=== PATIENT | female | born 1980 | race Caucasian/White ===

== ENCOUNTER 2017-07-20 09:33 | Observation (INO) ==
--- NOTE | 2017-07-20 10:12 | OB/GYN Progress Note ---
Date of Encounter: 07/20/17 Time of Encounter: 10:09 - Assessment and Plan (1) Decreased movement Current Visit: Yes Status: Acute Placement to observation for extended monitoring FHT - baseline 140 with variability and accels - category I No contractions noted on monitor Reports feeling good movement now Qualifiers: Fetus number: single or unspecified fetus Trimester: third trimester Qualified Code(s): O36.8130 - Decreased movements, third trimester, not applicable or unspecified (2) 33 weeks gestation of Current Visit: Yes Status: Acute (3) History of delivery, currently in third trimester Current Visit: Yes Status: Acute Pt refused progesterone in this . (4) contractions Current Visit: No Status: Acute Pt reports contractions have resolved this am. BHANUE /2. Plan for celestone today and tomorrow. Pt ok for discharge home after celestone today with strict labor precautions. Subjective - Subjective Principal diagnosis: Decreased Movement Interval history: Ms. Pang is a 36 year old female at 33w5d presenting to L&D from the office for decreased movement. She reports not feeling movement overnight. She reports having some contractions for the past week, at times as frequent as every 10 minutes. FHT in the office were reassuring. She admits to some normal mucous-like discharge. Reports some perineal pressure and pain. Denies LOF or vaginal bleeding. Denies fevers, chills, headaches, vision changes , dyspnea, abdominal pain, or edema. She has a history of pre-term delivery at 34 weeks. Antepartum ROS: new complaints, contractions, no loss of fluid, no vaginal bleeding, no movement normal Objective - Exam FHR: auscultation normal, category 1 FHR comments: FHT - baseline 140 with variability and accels - category I No contractions noted on monitor Auscultation: bilateral: normal Abdomen: Present: normal appearance, soft, gravid Uterus: Present: normal, firm
[2017-07-20 10:46] VITALS: BP 128/69
[2017-07-20 10:58] LABS: Amphetamine Screen,Urine Negative ng/mL (Cutoff=1000); Barbiturate Screen,Urine Negative ng/mL (Cutoff=200); Benzodiazepines Screen,Urine Negative ng/mL (Cutoff=200); Cannabinoid Screen,Urine Negative ng/mL (Cutoff = 50); Cocaine Screen,Urine Negative ng/mL (Cutoff= 300); Opiate Screen,Urine Negative ng/mL (Cutoff=300); Phencyclidine Screen,Urine Negative ng/mL (Cutoff=25)
[2017-07-20] MEDS ORDERED: Betamethasone Acet/SodPhos 6 MG/ML MDV IM SCH (11:45)
[2017-07-21 07:29] LABS: Bilirubin,Urine Negative (Negative); Blood,Urine Negative (Negative); Clarity,Urine Cloudy (Clear); Color,Urine Yellow (Yellow); Glucose,Urine (UA) Normal (Normal); Ketones,Urine Negative (Negative); Leukocyte Esterase,Urine Large (Negative); Nitrite,Urine Negative (Negative); Protein,Urine Negative (Neg-Trace); Urobilinogen,Urine Normal (Normal)
[2017-07-21 07:30] LABS: Bacteria,Urine Few per hpf (None-Few); Hyaline Casts,Urine None Seen per lpf (None-Few); Squamous Epithelial Cell,Urine Many per lpf (None-Few); WBC,Urine 15-30 per hpf (0-3)
== END 2017-07-20 12:01 | disposition home or self-care (01) ==
LOC: 1NENULAB
PROVIDERS: ADMIT Obstetrics & Gynecology; ATTEND Obstetrics & Gynecology

== ENCOUNTER 2017-07-23 14:58 | Observation (INO) ==
[2017-07-23] MEDS ORDERED: Acetaminophen 325 MG TABLET PO ONE (17:01)
[2017-07-23] MEDS ORDERED: Metoclopramide 10 MG/2 ML VIAL IVP ONE (17:01)
[2017-07-23] MEDS ORDERED: Ringers Solution, Lactated 1,000 ML IVC ONE (17:03)
[2017-07-23] MEDS ORDERED: Ringers Solution, Lactated 1,000 ML IVC SCH (17:15)
[2017-07-23 17:18] LABS: Basophils # 0.1 K/mcL (0.0-0.2); Basophils % 0.6 %; Eosinophils # 0.1 K/mcL (0.0-0.6); Eosinophils % 0.3 %; Hematocrit 37.8 % (35.3-44.9); Hemoglobin 12.6 g/dL (11.5-15.4); Immature Granulocytes % 3.3 % (0-4); Lymphocytes # 2.5 K/mcL (0.6-4.6); Lymphocytes % 15.1 %; Mean Corpuscular HGB Conc 33.3 g/dL (31.6-35.5); Mean Corpuscular Hemoglobin 28.3 pg (28.0-33.3); Mean Corpuscular Volume 84.8 fL (83.0-100.0); Mean Platelet Volume 10.4 fL (9.4-12.4); Monocytes # 1.4 K/mcL (0.0-1.3); Monocytes % 8.4 %; Neutrophils # 12.2 K/mcL (1.6-8.9); Platelet Count 261 K/mcL (140-400); Red Blood Count 4.46 M/mcL (3.82-4.97); Red Cell Distribution Width 13.6 % (11.5-14.5); Segmented Neutrophils % 72.3 %
[2017-07-23 17:20] LABS: Amphetamine Screen,Urine Negative ng/mL (Cutoff=1000); Barbiturate Screen,Urine Negative ng/mL (Cutoff=200); Benzodiazepines Screen,Urine Negative ng/mL (Cutoff=200); Cannabinoid Screen,Urine Negative ng/mL (Cutoff = 50); Cocaine Screen,Urine Negative ng/mL (Cutoff= 300); Opiate Screen,Urine Negative ng/mL (Cutoff=300); Phencyclidine Screen,Urine Negative ng/mL (Cutoff=25)
[2017-07-23 17:31] LABS: Alanine Aminotransferase 18 Units/L (7-52); Aspartate Amino Transferase 23 Units/L (13-39); BUN/Creatinine Ratio 16 (6-26); Blood Urea Nitrogen 9 mg/dL (6-20); Lactate Dehydrogenase 135 Units/L (140-271); Uric Acid 3.7 mg/dL (2.3-7.6); eGFR For African Americans > 60 (> 60); eGFR For Non-African Americans > 60 (> 60)
[2017-07-23 17:33] LABS: Protein/Creatinine Ratio,Urine 0.18 mg/mg (0.00-0.20)
--- NOTE | 2017-07-23 18:30 | OB/GYN Progress Note ---
Date of Encounter: 07/23/17 Time of Encounter: 18:28 - Assessment and Plan (1) 34 weeks gestation of Current Visit: Yes Status: Acute (2) Uterine contractions Current Visit: Yes Status: Acute Inital cervical exam by RN 1cm, CNM exam was tight 3, fluid bolus given. Cervical exam remains unchanged on follow up exam. Pt states feels contractions have decreased.Discharged home with labor and when to return to triage precautions. (3) NST (non-stress test) reactive Current Visit: Yes Status: Acute baseline 135 (4) Encounter for suspected PROM, with rupture of membranes not found Current Visit: Yes Status: Acute Nitrazine and fern negative (5) History of delivery, currently in third trimester Current Visit: No Status: Acute (6) Headache in , antepartum Current Visit: Yes Status: Acute Pt given fluid bolus, po tylenol and iv reglan. PIH labs drawn due bp of 140/ 85. All PIH labs negative. On discharged patient states headache has resolved. Subjective - Subjective Interval history: 34+1 weeks gestation presents to labor and delivery with complaints of contractions and leaking of fluid since yesterday, pt states she started having contractions yesterday and has noticed some leaking of fluid throughout the day requiring her to use a gian pad, contractions every 10-15 minutes. Pt also states she has had a headache since yesterday and notices and increase in pain with each contraction. Pt rates headache 8/10. Reports good movement denies vaginal bleeding. History of delivery at 36 and 35 weeks with last two pregnancies. Antepartum ROS: loss of fluid, movement normal, contractions, no vaginal bleeding Objective - Vital Signs Vital Signs: Intake and Output 07/23/17 07/23/17 07/23/17 07:59 15:59 23:59 Other: Weight 96.3 kg Patient Weight 07/23/17 23:59 Weight 96.3 kg - Exam FHR: auscultation normal FHR comments: Baseline 135 Abdomen: Present: normal appearance, soft, gravid Cervical dilation: tight 3cm/50/-2 - Labs Labs: Abnormal lab results WBC 16.8 K/mcL (4.3-11.1) H 07/23/17 17:05 Neutrophils # 12.2 K/mcL (1.6-8.9) H 07/23/17 17:05 Monocytes # 1.4 K/mcL (0.0-1.3) H 07/23/17 17:05 Creatinine 0.56 mg/dL (0.60-1.20) L 07/23/17 17:05 Lactate Dehydrogenase 135 Units/L (140-271) L 07/23/17 17:05
== END 2017-07-23 18:45 | disposition home or self-care (01) ==
LOC: 1NENULAB
PROVIDERS: ADMIT Advanced Practice Midwife; ATTEND Advanced Practice Midwife

== ENCOUNTER 2017-07-26 18:11 | Observation (INO) ==
--- NOTE | 2017-07-26 19:26 | OB/GYN Progress Note ---
Date of Encounter: 07/26/17 Time of Encounter: 19:00 - Assessment and Plan (1) Uterine contractions Current Visit: No Status: Acute Plan: - nitrazine test negative vaginally, positive on pad - negative ferning test - CTG shows no contractions - serial cervical exam without change - Pt safe for discharge home, with labor precautions, when to return to triage or call provider. Pt verbalizes understanding. (2) 34 weeks gestation of Current Visit: No Status: Acute (3) NST (non-stress test) reactive Current Visit: No Status: Acute FHR baseline= 130, (4) Encounter for suspected PROM, with rupture of membranes not found Current Visit: No Status: Acute Subjective - Subjective Principal diagnosis: labor eavl Interval history: Rachael is a 36 y/o female 34+4 weeks gestation presents to labor and delivery with complaints of contractions and leakage of fluid in the labor room. Patient states that contractions began at 4:00pm today and were every 3-4 minutes. While in the delivery room, patient stated that she thought she just broke her water and noticed a wet spot on the pad. Reports good movement. Admits to no diffuse vaginal bleeding but has been spotting since she had a vaginal exam. Denies dysuria, fevers, or chills. History of delivery at 36 and 35 weeks with last two pregnancies. Antepartum ROS: loss of fluid, movement normal, contractions, no vaginal bleeding Objective - Vital Signs Vital Signs: Intake and Output 07/26/17 07/26/17 07/26/17 07:59 15:59 23:59 Other: Weight 97.023 kg Patient Weight 07/26/17 23:59 Weight 97.023 kg - Exam FHR: category 1 FHR comments: FHR baseline = 130 Auscultation: bilateral: normal Abdomen: Present: normal appearance, soft Uterus: Present: normal Cervical dilation: 3-4cm Cervix effacement: 70% station: -2 Comments: SSE with thick clear mucus, negative pooling, negative nitrazine, negative fern
[2017-07-26 19:34] LABS: Bilirubin,Urine Negative (Negative); Blood,Urine Negative (Negative); Clarity,Urine Clear (Clear); Color,Urine Yellow (Yellow); Glucose,Urine (UA) Normal (Normal); Ketones,Urine Negative (Negative); Leukocyte Esterase,Urine Trace (Negative); Nitrite,Urine Negative (Negative); PH,Urine 6.5 pH Units (5.0-8.0); Protein,Urine Negative (Neg-Trace); Specific Gravity,Urine 1.015 (1.010-1.025); Urobilinogen,Urine Normal (Normal)
[2017-07-26 19:37] LABS: Amphetamine Screen,Urine Negative ng/mL (Cutoff=1000); Bacteria,Urine None Seen per hpf (None-Few); Barbiturate Screen,Urine Negative ng/mL (Cutoff=200); Benzodiazepines Screen,Urine Negative ng/mL (Cutoff=200); Cannabinoid Screen,Urine Negative ng/mL (Cutoff = 50); Cocaine Screen,Urine Negative ng/mL (Cutoff= 300); Hyaline Casts,Urine None Seen per lpf (None-Few); Opiate Screen,Urine Negative ng/mL (Cutoff=300); Phencyclidine Screen,Urine Negative ng/mL (Cutoff=25); Squamous Epithelial Cell,Urine Many per lpf (None-Few)
== END 2017-07-26 20:28 | disposition home or self-care (01) ==
LOC: 1NENULAB
PROVIDERS: ADMIT Registered Nurse; ATTEND Registered Nurse

== ENCOUNTER 2017-08-06 14:19 | Observation (INO) ==
[2017-08-06 14:56] LABS: Amphetamine Screen,Urine Negative ng/mL (Cutoff=1000); Barbiturate Screen,Urine Negative ng/mL (Cutoff=200); Benzodiazepines Screen,Urine Negative ng/mL (Cutoff=200); Cannabinoid Screen,Urine Negative ng/mL (Cutoff = 50); Cocaine Screen,Urine Negative ng/mL (Cutoff= 300); Opiate Screen,Urine Negative ng/mL (Cutoff=300); Phencyclidine Screen,Urine Negative ng/mL (Cutoff=25)
--- NOTE | 2017-08-06 15:38 | OB/GYN Progress Note ---
Date of Encounter: 08/06/17 Time of Encounter: 15:32 - Assessment and Plan (1) 36 weeks gestation of Current Visit: Yes Status: Acute Discharge home with labor precautions Follow up in office with routine care and PRN. (2) Vaginal discharge during in third trimester Current Visit: Yes Status: Acute Vaginosis panel pending. Will call patient if positive results (3) NST (non-stress test) reactive Current Visit: No Status: Acute reactive, category I tracing Subjective - Subjective Principal diagnosis: Leaking fluid Interval history: Ms Pang is a at 36 weeks and 1 day gestation that presents to labor and delivery triage with c/o gushes of vaginal fluid. She states positive movement. She denies headache visual disturbances, epigastric pain, vomiting, fever, diarrhea, and cramping/vaginal bleeding. She has a history of one delivery at 35 weeks, but had normal cervical ultrasound lengths this and declined progesterone after speaking with SOPH[facility] and Dr Moore. She states "I just want this to be over". Her perineum was dry upon nursing exam and nitrazine negative. She then states that she had a large gush of fluid immediately after the nurse left the room. There is a large yellow colored wet stain on the absorbent pad she is sitting on. Antepartum ROS: new complaints, loss of fluid, movement normal, no vaginal bleeding, no contractions Objective - Vital Signs Vital Signs: Intake and Output 08/05/17 08/06/17 08/06/17 23:59 07:59 15:59 Other: Weight 96.524 kg Patient Weight 08/06/17 23:59 Weight 96.524 kg - Exam FHR: auscultation normal, category 1 (Baseline 155) Abdomen: Present: normal appearance, soft, gravid. Absent: distention, tenderness Uterus: Present: normal. Absent: firm, bogginess, tenderness Cervical dilation: 4 Cervix effacement: 80 station: -1 Comments: SSE - mild amount of white thin discharge, no pooling Nitrazine negative Ferning negative
[2017-08-06 16:39] LABS: Candida DNA Not Detected (Not Detect); Gardnerella DNA ***DETECTED*** (Not Detect); Trichomonas DNA Not Detected (Not Detect)
== END 2017-08-06 16:05 | disposition home or self-care (01) ==
LOC: 1NENULAB
PROVIDERS: ADMIT Advanced Practice Midwife; ATTEND Advanced Practice Midwife

== ENCOUNTER 2017-08-14 09:31 | Inpatient (IN) ==
[~2017-08-14 09:31] MED LIST: Oxytocin 20 units/ LR 1000 mL 20 UNIT/1,000 ML BAG IVC ONE; Ringers Solution, Lactated 1,000 ML ONE
[2017-08-14] MEDS ORDERED: Lidocaine 1% 20 ML MDV ONE (09:54)
--- NOTE | 2017-08-14 10:13 | OB/GYN History & Physical ---
Date of Encounter: 08/14/17 Time of Encounter: 10:09 Assessment and Plan (1) 37 weeks gestation of Current visit: Yes Status: Acute (2) Uterine contractions Current visit: No Status: Acute Admit to labor and delivery Anticipate GBS+ Dr. Chacko updated about admission. History of Present Illness Chief complaint: labor HPI: Ms. Pang is a 36 year old female 37+2 presents in labor. Contractions since last night, stronger this morning. Desires unblocked natural . Late entry to care. AMA, no other complications. Desires PPTL Labs:O+, Rubella immune, GBS +, all other serologies negative, Past Med Surg Social Fam HX - Past Medical History Medical history: other Psychiatric history: no psych history - Past Surgical History Surgical History: no surgical history - Social History Smoking Status: Never smoker Smokeless Tobacco Status: No Alcohol use: none Drug use: none - Family History Mother Adopted: No Family Member Ethnicity: Non- Living Status: Still Living Hx Family Cardiac Disorders: No Hx Family Respiratory Disorders: No Hx Family Cancer: No Hx Family GI Disorders: No Hx Family Endocrine Disorder: Yes (diabetes) Hx Family Neuromuscular Disorders: No Hx Family Neurologic Disorders: No Hx Family HEENT Disorders: No Hx Family Autoimmune Disorders: No Obstetrical History - Pregnancies : 4 Para: 3 Livin Medications and Allergies Vit No.124/Iron/FA [ Vitamin Tablet] 1 tab PO DAILY #30 tablet 09/23/15 [Rx] 3 Allergy/AdvReac Type Severity Reaction Status Date / Time meperidine [From Demerol] AdvReac Mild Vomiting Verified 08/14/17 09:32 Exam - Constitutional Constitutional: well developed, well nourished, no acute distress, average body habitus - Neck Neck exam: full ROM - Lungs Respiratory exam: CTAB - Cardiovascular Cardiovascular exam: RRR - Abdomen Abdomen: Present: bowel sounds normal - Extremities Extremities exam: normal capillary refill, normal inspection - Cervix Dilation: 9 - Uterus Uterus exam: Present: normal size Results All other labs normal.
--- NOTE | 2017-08-14 10:19 | OB/GYN Procedure Note ---
Delivery - Delivery Date: 08/14/17 Provider: Romi Pineda Intrapartum events: precipitous labor- <3hr Delivery induction: none Delivery monitor: external FHT, external uterine Anesthesia: local Estimated Blood Loss: 200 - (s) A Delivery Date: 08/14/17 Delivery Time: 09:48 Presentation: vertex Position: OP Route of delivery: Gender: Male Viability: Viable at 1 minute: 9 at 5 mins: 9 Shoulder Dystocia: not encountered Placenta: spontaneous Cord: 3 umbilical vessels - Repair Episiotomy: none Laceration Description: Perineal - 1st Degree - Complications Delivery complications: none Delivery comments: Admitted in spontaneous labor at 9cm. Progressed to complete, Maternal bearing down efforts to of liveborn male. Vertex delivered OP, shoulders and body easily followed. Vigorous placed on maternal abdomen APGARS 9/9. Placenta delivered spontaneously (radha), complete upon inspections. Fundus massaged until firm and pitocin started per policy. 1st degree perineal laceration repaired with 3-0 Vycril. Mother and left bonding skin to skin. EBL 200 - Disposition Mom disposition: stable in LDR disposition: stable in LDR
[2017-08-14] MEDS ORDERED: Naloxone 0.4 MG/ML INJ IVP PRN (10:28)
[2017-08-14] MEDS ORDERED: Acetaminophen 325 MG TABLET PO PRN (10:43)
[2017-08-14] MEDS ORDERED: Benzocaine/Menthol 56 GM AEROSOL SPRAY TP PRN (10:43)
[2017-08-14] MEDS ORDERED: Lanolin 7 G OINT...G. TP PRN (10:43)
[2017-08-14] MEDS ORDERED: Oxytocin 20 units/ LR 1000 mL 20 UNIT/1,000 ML BAG IVC SCH (10:43)
[2017-08-14] MEDS: Ibuprofen 600 MG TABLET PO PRN (10:58)
[2017-08-14 11:02] LABS: Basophils % 0.3 %; Eosinophils # 0.1 K/mcL (0.0-0.6); Eosinophils % 0.8 %; Hematocrit 42.3 % (35.3-44.9); Lymphocytes # 2.4 K/mcL (0.6-4.6); Lymphocytes % 15.6 %; Mean Corpuscular HGB Conc 33.1 g/dL (31.6-35.5); Mean Corpuscular Hemoglobin 27.8 pg (28.0-33.3); Mean Corpuscular Volume 83.9 fL (83.0-100.0); Mean Platelet Volume 10.7 fL (9.4-12.4); Monocytes # 0.9 K/mcL (0.0-1.3); Monocytes % 5.6 %; Neutrophils # 11.7 K/mcL (1.6-8.9); Platelet Count 254 K/mcL (140-400); Red Blood Count 5.04 M/mcL (3.82-4.97); Red Cell Distribution Width 14.2 % (11.5-14.5); Segmented Neutrophils % 76.7 %
[2017-08-14 14:07] LABS: Amphetamine Screen,Urine Negative ng/mL (Cutoff=1000); Barbiturate Screen,Urine Negative ng/mL (Cutoff=200); Benzodiazepines Screen,Urine Negative ng/mL (Cutoff=200); Cannabinoid Screen,Urine Negative ng/mL (Cutoff = 50); Cocaine Screen,Urine Negative ng/mL (Cutoff= 300); Opiate Screen,Urine Negative ng/mL (Cutoff=300); Phencyclidine Screen,Urine Negative ng/mL (Cutoff=25)
[2017-08-15] MEDS: Ibuprofen 600 MG TABLET PO PRN ×2 (00:01→08:55)
--- NOTE | 2017-08-15 07:58 | Discharge Summary ---
Date of Encounter: 08/15/17 Time of Encounter: 08:15 - Discharge Diagnosis (1) 37 weeks gestation of Priority: Primary Status: Acute (2) Spontaneous vaginal delivery Priority: Secondary Status: Acute - Discharge Medications Prescriptions: Acetaminophen [Tylenol] 650 mg PO Q6HR PRN #40 tablet PRN Reason: Mild Pain Ibuprofen [Motrin] 600 mg PO Q6HR PRN #40 tablet PRN Reason: Cramping Docusate [Colace] 100 mg PO BID #10 capsule Home Medications: Vit No.124/Iron/FA [ Vitamin Tablet] 1 tab PO DAILY #30 tablet 09/23/15 [Rx] Acetaminophen [Tylenol] 650 mg PO Q6HR PRN #40 tablet 08/15/17 [Rx] Benzocaine/Menthol [place] [Dermoplast [place]] 1 appl TP QID PRN aerosol 08/15/17 [Rx] Docusate [Colace] 100 mg PO BID #10 capsule 08/15/17 [Rx] Ibuprofen [Motrin] 600 mg PO Q6HR PRN #40 tablet 08/15/17 [Rx] Lanolin [Lansinoh] 1 appl TP QID PRN oint...g. 08/15/17 [Rx] Allergies/Adverse Reactions: 3 Allergy/AdvReac Type Severity Reaction Status Date / Time meperidine [From Demerol] AdvReac Mild Vomiting Verified 08/14/17 09:32 Data Procedures and tests throughout hospitalization: Laboratory Tests 08/14/17 08/14/17 09:34 13:40 WBC 15.2 H RBC 5.04 H Hgb 14.0 Hct 42.3 MCV 83.9 MCH 27.8 L MCHC 33.1 RDW 14.2 Plt Count 254 MPV 10.7 Immature Gran % 1.0 Seg Neutrophils % 76.7 Lymphocytes % 15.6 Monocytes % 5.6 Eosinophils % 0.8 Basophils % 0.3 Neutrophils # 11.7 H Lymphocytes # 2.4 Monocytes # 0.9 Eosinophils # 0.1 Basophils # 0.0 Urine Opiates Screen Negative Ur Barbiturates Screen Negative Ur Phencyclidine Scrn Negative Ur Amphetamines Screen Negative U Benzodiazepines Scrn Negative Urine Cocaine Screen Negative U Marijuana (THC) Screen Negative Labs on day of discharge: Labs from last 24 hours 08/14/17 08/14/17 13:40 09:34 WBC 15.2 H RBC 5.04 H Hgb 14.0 Hct 42.3 MCV 83.9 MCH 27.8 L MCHC 33.1 RDW 14.2 Plt Count 254 MPV 10.7 Immature Gran % 1.0 Seg Neutrophils % 76.7 Lymphocytes % 15.6 Monocytes % 5.6 Eosinophils % 0.8 Basophils % 0.3 Neutrophils # 11.7 H Lymphocytes # 2.4 Monocytes # 0.9 Eosinophils # 0.1 Basophils # 0.0 Urine Opiates Screen Negative Ur Barbiturates Screen Negative Ur Phencyclidine Scrn Negative Ur Amphetamines Screen Negative U Benzodiazepines Scrn Negative Urine Cocaine Screen Negative U Marijuana (THC) Screen Negative Date of admission: 08/14/17 13:21 Primary care physician: PCP NONE Discharging clinician: Jessica Espinal Anticipated date of discharge: 08/15/17 - Patient Status Disposition: Home, Self-Care Condition: Good Functional capacity at discharge: independent ambulation Overall status at discharge: patient is progressing back to baseline - Discharge Instructions Follow Up With: NONE,PCP [Primary Care Provider] - - Diet and Activity Activity: increase activity as tolerated Diet: advance to your usual diet Hospital Course Reason for admission: active labor Delivery: Episiotomy: none Laceration: none Other procedures: none complications: none Discharge diagnosis: IUP at term delivered baby: male Hospital course: - Delivery Date: 08/14/17 Provider: Romi Pineda Intrapartum events: precipitous labor- <3hr Delivery induction: none Delivery monitor: external FHT, external uterine Anesthesia: local Estimated Blood Loss: 200 - Infant (s) A Infant Delivery Date: 08/14/17 Infant Delivery Time: 09:48 Presentation: vertex Position: OP Route of delivery: Gender: Male Viability: Viable at 1 minute: 9 at 5 mins: 9 Shoulder Dystocia: not encountered Placenta: spontaneous Cord: 3 umbilical vessels - Repair Episiotomy: none Laceration Description: Perineal - 1st Degree - Complications Delivery complications: none Delivery comments: Admitted in spontaneous labor at 9cm. Progressed to complete, Maternal bearing down efforts to of liveborn male. Vertex delivered OP, shoulders and body easily followed. Vigorous infant placed on maternal abdomen APGARS 9/9. Placenta delivered spontaneously (radha), complete upon inspections. Fundus massaged until firm and pitocin started per policy. 1st degree perineal laceration repaired with 3-0 Vycril. Mother and left bonding skin to skin. EBL 200 - Disposition Mom disposition: stable in Patient has had no complications since delivery. BPS unable to be completed today, therefore will be scheduled at 6 weeks . Patient given Depo- Provera shot before discharged. Patient has been able to void with pain well controlled on PO mediations. Patient stable and safe for discharge. Will f/u in [address] Novak so he can schedule her BPS. Time Attestation: Total time spent providing and/or coordinating discharge services: Exam - Constitutional Vitals: Temp Pulse Resp BP Pulse Ox 98.2 F 68 14 118/73 98 08/15/17 03:35 08/15/17 03:35 08/15/17 03:35 08/15/17 03:35 08/15/17 03:35 General appearance IM: cooperative, pleasant, no acute distress - Respiratory Respiratory exam: Present: CTAB - Cardiovascular Cardiovascular exam IM: Present: RRR - GI/Abdominal GI/Abdominal exam IM: normal bowel sounds, soft - Uterine Tone: Firm Uterus Position: 2 Fingers Below Umbilicus - Extremities Exam Extremities exam IM: Present: pedal edema - Neurological Exam Neurological exam: alert, no focal deficits - Other Additional findings: I examined this patient and my medical decision-making was reviewed with the Resident Physician. I agree with the documented findings, disposition and treatment plan as described except to the extent set forth below. MAGGY Fitzgerald - Attending Attestation I examined this patient and my medical decision-making was reviewed with the Resident Physician. I agree with the documented findings, disposition and treatment plan as described except to the extent set forth below. MAGGY Fitzgerald
[2017-08-15 08:21] VITALS: BP 130/76
[2017-08-15] MEDS ORDERED: Prenatal Vit/FA 1 EACH TABLET PO SCH (09:00)
== END 2017-08-15 12:54 | disposition home or self-care (01) | DRG 560 ==
LOC: 1NENULAB → 1NENUOBS 12:46
PROVIDERS: ADMIT Advanced Practice Midwife; ATTEND Advanced Practice Midwife